=== PATIENT | male | born 1950 | race Caucasian/White ===

== ENCOUNTER → 2016-09-04 | Outpatient (REF) | payer OTHER ==
[2016-09-05 13:32] LABS: CONTROL LINE HPYORI INT CTR LINE PRESENT
== END ==
LOC: M LAB REF 16:37
PROVIDERS: ATTEND Nurse Practitioner Adult Health
DX: R10.13 Epigastric pain (principal)

== ENCOUNTER → 2022-01-04 | Outpatient (REF) | payer MEDICARE | LOC: M LAB REF 16:22 | PROVIDERS: ATTEND Physician Assistant Medical | DX: K14.6 Glossodynia (principal) ==

== ENCOUNTER → 2022-04-03 | Outpatient (CLI) | payer MEDICARE ==
[2022-04-03 16:12] LABS: FOLATE 15.4 NG/ML
== END ==
LOC: M LAB 11:40
PROVIDERS: ATTEND Otolaryngology
DX: K13.79 Other lesions of oral mucosa (principal)

== ENCOUNTER → 2022-04-23 | Outpatient (REF) | payer MEDICARE ==
[2022-04-24 17:19] LABS: HEPATITIS C VIRUS ABY INDEX < 0.0 INDEX (<0.8)
== END ==
LOC: M LAB REF 16:06
PROVIDERS: ATTEND Internal Medicine
DX: R41.3 Other amnesia (principal); Z01.89 Encounter for other specified special examinations

== ENCOUNTER → 2022-05-10 | Outpatient (CLI) | payer MEDICARE | LOC: M PLAIMG 15:42 | PROVIDERS: ATTEND Internal Medicine | DX: R41.3 Other amnesia (principal) ==

== ENCOUNTER 2024-04-14 11:45 | Day surgery (SDC) | payer MEDICARE ==
[~2024-04-14] VITALS: Ht 170.2 cm; Wt 99.2 kg
[~2024-04-14 11:45] MED LIST: AMLO5CAP53 PO; AZEL1SPR3 NARES; CLAR10CA3 PO; ECOT81TA5 PO; FLUTISP; INDA1.253 PO; NAPR220C14 PO; ROSU20TA61 PO; XALA0.007
[2024-04-14] MEDS: NS 1,000 ML IV ONE (12:03)
[2024-04-14] MEDS ORDERED: LIDOCAINE 2% 100MG/5ML SDV (FOR ANES.) As Ordered ONE (12:52)
[2024-04-14] MEDS ORDERED: propofoL 200 MG/20 ML VIAL As Ordered ONE (13:11)
[2024-04-14 13:22] VITALS: TEMP 97.8
[2024-04-14 13:43] VITALS: BP 139/65; O2SAT 96
== END 2024-04-14 13:48 | disposition home or self-care (01) ==
LOC: M OPP 11:45
PROVIDERS: ATTEND Internal Medicine Gastroenterology
DX: Z12.11 Encounter for screening for malignant neoplasm of colon (principal); D12.0 Benign neoplasm of cecum; K64.0 First degree hemorrhoids; K57.30 Diverticulosis of large intestine without perforation or abscess without bleeding; Z79.02 Long term (current) use of antithrombotics/antiplatelets; Z79.1 Long term (current) use of non-steroidal anti-inflammatories (NSAID); Z79.51 Long term (current) use of inhaled steroids; Z79.82 Long term (current) use of aspirin; Z79.620 Long term (current) use of immunosuppressive biologic; Z79.899 Other long term (current) drug therapy

== ENCOUNTER → 2024-04-27 | Outpatient (CLI) | payer MEDICARE | LOC: M RAD 11:20 | PROVIDERS: ATTEND Internal Medicine | DX: I65.23 Occlusion and stenosis of bilateral carotid arteries (principal) ==

== ENCOUNTER → 2024-05-12 | Outpatient (CLI) | payer MEDICARE | LOC: M CLY 11:11 | PROVIDERS: ATTEND Physician Assistant | DX: M79.671 Pain in right foot (principal); Z53.9 Procedure and treatment not carried out, unspecified reason ==